=== PATIENT | female | born 1990 | race Caucasian/White ===

== ENCOUNTER → 2019-10-10 10:11 | Outpatient (CLI) | payer SELFPAY ==
[~2019-10-10 10:11] MED LIST: ACETAMINOPHEN500 M1 PO; FERROUS GLUCON324 MG PO; IBUPROFEN800 MG PO; PERCOCET 10/3251 TA1 PO; PRENATAL PO
== END | disposition home or self-care (01) ==
LOC: D.US 10:11
PROVIDERS: ATTEND Nurse Practitioner Family
DX: N64.52 Nipple discharge (principal)